=== PATIENT | female | born 1955 | race Caucasian/White ===

== ENCOUNTER → 2021-07-01 08:00 | Outpatient (CLI) | payer MEDICARE, SELFPAY ==
--- NOTE | 2021-07-01 | DI.MG.S_ITS ---
BILATERAL DIGITAL SCREENING MAMMOGRAM 3D/2D WITH CAD WITH AUGMENTATION: 07/01/2021 CLINICAL: Routine screening. Baseline exam. No prior exams were available for comparison. There are scattered fibroglandular elements in both breasts. Current study was also evaluated with a Computer Aided Detection (CAD) system. No significant masses, calcifications, or other findings are seen in either breast. IMPRESSION: NEGATIVE There is no mammographic evidence of malignancy. A 1 year screening mammogram is recommended. This exam was interpreted at Station ID: [id number]. NOTE: For mammograms, a report in lay terms will be sent to the patient. Approximately 15% of breast malignancies will not be visualized mammographically. In the management of a palpable breast mass, a negative mammogram must not discourage biopsy of a clinically suspicious lesion. Electronically Signed By: Dionte blankenship/dontae:07/01/2021 12:13:05 letter sent: Normal Exam ACR BI-RADS Category 1: Negative 3341F
== END ==
PROVIDERS: PCP Internal Medicine; Referring Provider Internal Medicine; Visit Provider Internal Medicine
DX: Z12.31 Encounter for screening mammogram for malignant neoplasm of breast (principal)
CPT/HCPCS: 77063; 77067

== ENCOUNTER → 2021-09-24 09:15 | Outpatient (CLI) | payer MEDICARE, SELFPAY ==
[2021-09-24 12:00] LABS: COVID19 -Nasal RAPID Negative (Negative)
== END ==
PROVIDERS: PCP Internal Medicine; Visit Provider Surgery
DX: Z01.812 Encounter for preprocedural laboratory examination (principal); Z20.822 Contact with and (suspected) exposure to COVID-19
CPT/HCPCS: 87635; C9803

== ENCOUNTER 2021-09-25 06:39 | Day surgery (SDC) | payer MEDICARE, OTHER, SELFPAY ==
--- NOTE | 2021-09-25 | PATH_ITS ---
[facility] Accession Number: [id number] . 01 Material submitted: . cecum - CECAL POLYPS . 01 Diagnosis: Cecum, Polyps, Biopsies: Tubular adenoma in two of three fragments. MRV 09/29/2021 1058 Local . 01 Electronically signed: . Toña Fuentes MD, Pathologist NPI- [id number] . 01 Gross description: . CECAL POLYPS: Received in formalin are 3 fragment(s) of wen, soft tissue measuring 0.2 x 0.2 x 0.2 cm to 0.4 x 0.2 x 0.2 cm submitted entirely in 1 cassette(s) /ISHAN 09/26/2021 1901 Local . 01 Pathologist provided ICD-10: D12.0 . 01 CPT . 872877 Specimen Comment: A courtesy copy of this report has been sent to [phone] Performed at: 01 [facility] [address] [place] [address], [place], [place] [id number] MD Bryon Todd MD Phone: [phone]
[2021-09-25 07:17] VITALS: BP 122/77; PULSE 78; RESP 15; TEMP 36.6; O2SAT 99; BMI 18.3
[2021-09-25] MEDS: LACTATED RINGERS 1,000 ML 42 ML IV (07:25)
--- NOTE | 2021-09-25 07:53 | PM.HP.1 ---
History of Present Illness History of Present Illness Date Patient Seen: 09/25/21 Time Patient Seen: 07:53 Chief complaint: Colonoscopy Narrative: Thom is a 66-year-old woman who is here for a screening colonoscopy. She has had 2 in the past and she believes her most recent 1 was about 10 years ago with no polyps found. She has no known family history of colon cancer. She is otherwise healthy. Patient History Family & Social History Social History: household members spouse Tobacco & Substance use: Smoking Status Former smoker alcohol intake current alcohol intake frequency a few times a month Substance Use Type does not use Meds Home Medications and Allergies Home Medications Medication Instructions Recorded Confirmed Type sodium sul 1.479 gram-potas ch See Rx Instructions PO PER PKG DIR 09/02/21 Rx 0.188 gram-magnes sul 0.225 gram #24 tabs tablet (Sutab) Allergies Allergy/AdvReac Type Severity Reaction Status Date / Time No Known Drug Allergies Allergy Verified 09/25/21 07:20 Exam Vital Signs (past 8 hours): - 09/25/21 07:17 Temperature 97.9 F Pulse Rate 78 Respiratory Rate 15 Blood Pressure 122/77 Pulse Oximetry 99 Oxygen Delivery Method Room Air Oxygen Delivery Method Room Air Const General: healthy appearing Resp Effort & Inspection: normal respiratory effort GI Palpation: soft Neuro General: patient alert and patient awake Assessment & Plan Assessment and plan (1) Colon cancer screening: Status: Acute Plan We reviewed the risks and benefits of colonoscopy for colon cancer screening and he would like to proceed. COVID-19 COVID-19 status: Negative Result date/Date tested (Pos, Neg/Pending): 09/24/21 Time Spent With Patient Critical Care time: I spent a total of [] minutes of critical care time on this patient's care today; this time is exclusive of procedural time.
[2021-09-25] MEDS: fentaNYL 250 MCG/5 ML INJ 150 MCG IV (08:13)
[2021-09-25] MEDS: MIDAZOLAM 2 MG/2 ML VIAL 5 MG IV (08:13)
--- NOTE | 2021-09-25 08:29 | P.OP.COLON_ITS ---
Operative Date/Time/Diagnoses Date of procedure: 09/25/21 Time of procedure: 08:29 Pre-op diagnosis: Colon cancer screening Post-op diagnosis: same Procedure & Clinicians Study performed: Colonoscopy Same procedure as scheduled: Yes Surgeon: Samuel Kidd Procedure Notes Procedure in detail: Surgeon: Samuel Kidd MD Procedure: The patient was brought to the endoscopy suite, placed in left lateral decubitus position. The patient was connected to monitoring devices. A time-out was performed. Sedation was administered. Once the patient was adequately sedated, a digital rectal exam was performed and was normal. The scope was then inserted and advanced to the cecum where the appendiceal orifice was identified and photographed. The scope was then slowly withdrawn over greater than 6 minutes. The mucosa was thoroughly inspected. There were 2 polyps in the cecum. One was about 8 mm and was about 4 mm. Both were removed with the cold snare. There were scattered diverticula mostly in the sigmoid colon. The scope was retroflexed in the rectum. No other abnormalities were n oted. The scope was straightened and removed. The patient was awakened and brought to recovery. Versed: 5 mg Fentanyl: 150 mcg EBL: 5 mL Findings: 2 polyps in the cecum, greatest 8 mm and scattered diverticulosis Scope withdrawal time: 9 Sedation minutes: 26 Impression: Two cecal polyps, greatest the mm and mild diverticulosis Post-procedure Recommendations: Will call with biopsy results Disposition: PACU
[2021-09-25 08:32] VITALS: BP 102/62; PULSE 75; RESP 14; TEMP 36.2; O2SAT 98
[2021-09-25 08:36] VITALS: BP 112/72; PULSE 81; RESP 13; O2SAT 99
[2021-09-25 08:40] VITALS: BP 112/70; PULSE 78; RESP 16; O2SAT 99
[2021-09-25 08:42] VITALS: BP 112/72; PULSE 78; RESP 12; O2SAT 99
== END 2021-09-25 08:55 | disposition home or self-care (01) ==
PROVIDERS: PCP Internal Medicine; Referring Provider Surgery; Visit Provider Surgery
PROC: 0DJD8ZZ Inspection of Lower Intestinal Tract, Via Natural or Artificial Opening Endoscopic (ICD-10-PCS; CPT 45378; principal; 2021-09-25 07:45)
DX: Z12.11 Encounter for screening for malignant neoplasm of colon (principal); K57.30 Diverticulosis of large intestine without perforation or abscess without bleeding; D12.0 Benign neoplasm of cecum
CPT/HCPCS: 45385; 99152; 99153; J2250; J3010